=== PATIENT | male | born 1940 | race Caucasian/White ===

== ENCOUNTER → 2016-06-03 | Outpatient (CLI) | payer MEDICARE ==
[2016-06-03 08:56] LABS: ALT 35 U/L (21-72); AST 36 U/L (17-59); Alkaline Phosphatase 56 U/L (38-126); Anion Gap 10 mmol/L; Blood Urea Nitrogen 14 mg/dL (9-20); Calcium 9.2 mg/dL (8.4-10.2); Carbon Dioxide 27 mmol/L (22-30); Chloride 105 mmol/L (98-107); Glucose 89 mg/dL (74-99); Non-African American GFR(MDRD) >60 (>60 ml/min/1.73 sqM); Potassium 4.9 mmol/L (3.5-5.1); Sodium 142 mmol/L (137-145); Total Bilirubin 0.6 mg/dL (0.2-1.3); Total Protein 7.5 g/dL (6.3-8.2)
== END | disposition home or self-care (01) ==
LOC: LABWHC1 07:41
PROVIDERS: ATTEND Internal Medicine Endocrinology, Diabetes & Metabolism
DX: E03.9 Hypothyroidism, unspecified (principal); E55.9 Vitamin D deficiency, unspecified; E23.6 Other disorders of pituitary gland; M81.0 Age-related osteoporosis without current pathological fracture
CPT/HCPCS: 36415; 80053; 82306; 82523; 83970

== ENCOUNTER → 2016-11-04 | Outpatient (CLI) | payer MEDICARE | END | disposition home or self-care (01) | LOC: LABWHC1 09:35 | PROVIDERS: ATTEND Ophthalmology | DX: H53.2 Diplopia (principal) | CPT/HCPCS: 36415; 83519 ==

== ENCOUNTER → 2016-11-14 | Outpatient (CLI) | payer MEDICARE ==
[2016-11-14 14:37] LABS: Blood Urea Nitrogen 13 mg/dL (9-20); Non-African American GFR(MDRD) >60 (>60 ml/min/1.73 sqM)
--- NOTE | 2016-11-14 16:42 | MR ---
EXAMINATION TYPE: MR brain wo/w con DATE OF EXAM: 11/14/2016 COMPARISON: NONE HISTORY: Double Vision Right Eye, Headaches TECHNIQUE: Multiplanar, multisequence images of the brain and brainstem is performed without and with IV contras t, utilizing 15 mL intravenous MultiHance . FINDINGS: Diffusion weighted images demonstrate no evidence of a recent infarct or other diffusion ab normality. There is no extra-axial fluid collection. Periventricular confluent and scattered hyperin tensities are present on inversion recovery and T2-weighted sequences. Juxtacortical focus the insula r cortex on the left [id number] mm in size. The ventricular system and cisternal spaces are normal in size and appearance. The brain volume is age appropriate, there is cortical atrophy. Midline structures demonstrate normal morphology. The craniocervical junction appears within normal limits. Post contrast images demonstrate no abnormal enhancement. The dural venous sinuses appear pa tent. The visualized sinuses are significant for mucosal disease within the ethmoid air cells, maxill nehal sinus, and the globes are intact. IMPRESSION: Age-related atrophy and probable chronic small vessel ischemia. White matter signal banks es are nonspecific.
== END | disposition home or self-care (01) ==
LOC: RADMRIMAIN 13:51
PROVIDERS: ATTEND Ophthalmology
DX: G31.9 Degenerative disease of nervous system, unspecified (principal); R90.89 Other abnormal findings on diagnostic imaging of central nervous system; E11.9 Type 2 diabetes mellitus without complications; N28.9 Disorder of kidney and ureter, unspecified
CPT/HCPCS: 82565; 84520; 70553; A9577

== ENCOUNTER → 2017-01-07 | Outpatient (CLI) | payer MEDICARE ==
[2017-01-07 08:08] LABS: Cholesterol 214 mg/dL (<200); HDL Cholesterol 83 mg/dL (40-60)
== END | disposition home or self-care (01) ==
LOC: LABWHC1 07:11
PROVIDERS: ATTEND Ophthalmology
DX: H53.9 Unspecified visual disturbance (principal)
CPT/HCPCS: 36415; 80061; 83519

== ENCOUNTER 2017-04-17 19:18 | Emergency (ER) | payer MEDICARE ==
[2017-04-17 19:35] VITALS: PULSE 78; RESP 18; TEMP 98.5
[2017-04-17 19:37] VITALS: BP 183/85
--- NOTE | 2017-04-17 20:17 | XR ---
EXAMINATION TYPE: XR shoulder complete LT DATE OF EXAM: 04/17/2017 CLINICAL HISTORY: Left shoulder pain after fall TECHNIQUE: Three views of the left shoulder are obtained. COMPARISON: None. FINDINGS: There is diffuse mild osseous demineralization. There is no acute fracture/dislocation wes dent in the left shoulder. The acromioclavicular and glenohumeral joint spaces appear within normal limits. The visualized ribs are intact and unremarkable. IMPRESSION: There is no acute fracture or dislocation in the left shoulder.
--- NOTE | 2017-04-17 20:42 | ED ---
Upper Extremity HPI - General Chief Complaint: Extremity Injury, Upper Stated Complaint: Fell Time Seen by Provider: 04/17/17 19:57 Source: patient Mode of arrival: ambulatory Limitations: no limitations - History of Present Illness Initial Comments: 77-year-old male patient presents to the emergency department today for evaluation after falling down some steps. Patient states that he was coming down the stairs when he fell backwards striking his left shoulder and left lower back on the stairs. Patient states he did strike his head. He denies any loss of consciousness with this. He denies any current headache, neck pain , back pain, dizziness, weakness, numbness, or tingling. He denies any blurred vision or double vision. He is currently complaining only of left shoulder discomfort. He reports no pain at rest or with palpation of the shoulder however states the pain increases when he attempts to move it. He denies any numbness or tingling in the left arm. States that he was seen at [facility] however sent here because he hit his head. He denies any use of anticoagulant medications. Patient denies any chest pain, shortness of breath, abdominal pain , nausea, vomiting, or difficulties with bowel movements or urination. - Related Data Home Medications Medication Instructions Recorded Confirmed Citalopram Hydrobromide 1 tab PO DAILY 04/17/17 04/17/17 [Citalopram HBr] Previous Rx's Medication Instructions Recorded Ibuprofen [Motrin] 600 mg PO Q8HR PRN #30 tab 04/17/17 Allergies Allergy/AdvReac Type Severity Reaction Status Date / Time aspirin AdvReac Unknown Verified 04/17/17 19:35 Review of Systems ROS Statement: Those systems with pertinent positive or pertinent negative responses have been documented in the HPI. ROS Other: All systems not noted in ROS Statement are negative. Past Medical History Past Medical History: No Reported History History of Any Multi-Drug Resistant Organisms: None Reported Past Surgical History: Back Surgery Past Psychological History: Anxiety Smoking Status: Former smoker Past Alcohol Use History: Occasional Past Drug Use History: None Reported General Exam Limitations: no limitations General appearance: alert, in no apparent distress, other (This is a well- developed, well-nourished elderly male patient in no acute distress. Vital signs upon presentation shows a temperature 98.5F, pulse 78, respirations 18, blood pressure 207/88, pulse ox 98% on room air.) Head exam: Present: atraumatic, normocephalic, normal inspection Eye exam: Present: normal appearance, PERRL, EOMI. Absent: scleral icterus, conjunctival injection, nystagmus, periorbital swelling ENT exam: Present: normal exam, normal oropharynx, mucous membranes moist Neck exam: Present: normal inspection, full ROM, other (Nontender, no step-off, no deformity to firm midline palpation of the posterior cervical spine. Full range of motion without pain or limitation.). Absent: tenderness, meningismus, lymphadenopathy Respiratory exam: Present: normal lung sounds bilaterally. Absent: respiratory distress, wheezes, rales, rhonchi, stridor Cardiovascular Exam: Present: regular rate, normal rhythm, normal heart sounds. Absent: systolic murmur, diastolic murmur, rubs, gallop, clicks Extremities exam: Present: normal inspection, normal capillary refill. Absent: full ROM (Patient has approximately 90 of forward flexion of the left shoulder before pain becomes severe. He has 180 of abduction, and approximately 45 of hyperextension.), tenderness, pedal edema, joint swelling, calf tenderness Back exam: Present: normal inspection, other (Nontender, no step-off, no deformity to firm midline palpation of the thoracic and lumbar vertebrae. Full range of motion without pain or limitation.). Absent: tenderness, vertebral tenderness Neurological exam: Present: alert, oriented X3, CN II-XII intact Psychiatric exam: Present: normal affect, normal mood Skin exam: Present: warm, dry, intact, normal color. Absent: rash Course Vital Signs 04/17/17 04/17/17 19:32 19:37 Temperature 98.5 F Pulse Rate 78 Respiratory 18 Rate Blood Pressure 207/88 183/85 O2 Sat by Pulse 98 Oximetry Medical Decision Making - Medical Decision Making 77-year-old male patient presented to the emergency department today for evaluation of left shoulder pain after a fall injury. Physical examination did reveal some decreased range of motion with for flexion of the left upper extremity at the shoulder. Physical examination was otherwise unremarkable. Patient was neurologically intact. X-ray was negative for any acute fracture or dislocation. Did discuss with patient the possibility of ligamentous or muscle injury. He is instructed to follow-up with his orthopedic physician Dr. Castle who is currently treating him for a right shoulder injury. He is instructed take ibuprofen for pain control. He is instructed to apply ice for the first 24 hours. He is instructed to return here immediately for any new, worsening, or concerning symptoms. He verbalizes understanding and agree with this plan. - Radiology Data Radiology results: report reviewed, image reviewed 3 views of the left shoulder are obtained and showed diffuse mild osseous demineralization. There is no acute fracture dislocation evident in the left shoulder. The acromioclavicular and glenohumeral joint spaces appear within normal limits. The visualized ribs are intact and unremarkable. Impression by Dr. Madrid shows no acute fracture dislocation of the left shoulder. Disposition Clinical Impression: Injury of left shoulder, Head injury Disposition: HOME SELF-CARE Condition: Good Instructions: Fall Prevention (ED), Shoulder Pain (ED) Additional Instructions: Apply ice to the painful areas 20 minutes at a time at least 4 times daily. Continue taking ibuprofen for pain control. Take this medication with food. Follow-up with the orthopedic physician for recheck in 1-2 days. Return here immediately for any new, worsening, or concerning symptoms. Prescriptions: Ibuprofen [Motrin] 600 mg PO Q8HR PRN #30 tab PRN Reason: Pain Referrals: Darren Wheat MD [Primary Care Provider] - 1-2 days Duran Castle MD [STAFF PHYSICIAN] - 1-2 days Time of Disposition: 20:42
== END 2017-04-17 20:47 | disposition home or self-care (01) ==
LOC: EC 19:18
DX: S49.92XA Unspecified injury of left shoulder and upper arm, initial encounter (principal); S09.90XA Unspecified injury of head, initial encounter; Z87.891 Personal history of nicotine dependence; Z88.6 Allergy status to analgesic agent; Z79.899 Other long term (current) drug therapy; W10.9XXA Fall (on) (from) unspecified stairs and steps, initial encounter
CPT/HCPCS: 99283

== ENCOUNTER → 2019-06-20 | Outpatient (CLI) | payer MEDICARE | END | disposition home or self-care (01) | LOC: LABWHC1 09:58 | PROVIDERS: ATTEND Otolaryngology | DX: J30.89 Other allergic rhinitis (principal) | CPT/HCPCS: 36415 ==

== ENCOUNTER → 2019-08-19 | Day surgery (SDC) | payer MEDICARE ==
[2019-08-16 12:47] VITALS: BMI 26.6
[~2019-08-19] MED LIST: LACTATED RINGERS 1,000 ML IV ONE; MIDAZOLAM 2 MG/2 ML VIAL ONE; PROPOFOL 10 MG/ML 20 ML VIAL IV ONE
[2019-08-19 08:04] VITALS: TEMP 97.2
--- NOTE | 2019-08-19 08:24 | P.PCN ---
Date of Procedure: 08/19/19 Procedure(s) Performed: BRIEF HISTORY: Patient is a 79-year-old, pleasant, to 8 male scheduled for an upper endoscopy as a part of evaluation of dysphagia and throat irritation for the last several weeks duration. He was diagnosed with oral candidiasis and was treated with fluconazole and 2 different occasions with no help. He was seen by ENT and was started on Protonix 40 mg daily. Because of the persistent dysphagia and abnormal weight loss of almost 25 pounds in the last 6 months duration he scheduled for an upper endoscopy to evaluate further.. PROCEDURE PERFORMED: Esophagogastroduodenoscopy with biopsy. PREOPERATIVE DIAGNOSIS: Throat irritation and dysphagia/weight loss of 25 pounds. IV sedation per anesthesia. PROCEDURE: After informed consent was obtained, the patient was brought into the endoscopy unit. IV sedation was administered by Anesthesia under continuous monitoring. Initially the Olympus GIF-140 video endoscope was inserted into the mouth. Esophagus intubated without any difficulty. It was gradually advanced into the stomach and duodenum and carefully examined. The bulb and the second part of the duodenum appeared normal. The scope at this time was withdrawn to the stomach, adequately insufflated with air, and upon careful examination, mucosa of the antrum had mild gastritis and biopsies were done from this area. The, body, cardia and the fundus appeared normal. The scope was then withdrawn into the esophagus. The GE junction was located at 39 cm from the incisors. The esophagus appeared normal. There were no erosions or ulcerations seen, multiple biopsies were done from the mid and distal esophagus and the patient tolerated the procedure well. IMPRESSION: 1. Normal-appearing esophagus with no evidence of esophagitis, esophageal stricture. 2. Mild antral gastritis. RECOMMENDATIONS: The findings of this examination were discussed with the abigail ent as well as his family. He was advised to follow with the biopsy results. He will continue with Protonix 40 mg daily. He'll be seen in office in 3 weeks..
[2019-08-19 08:29] VITALS: RESP 17
[2019-08-19 08:32] VITALS: BP 124/65; PULSE 63
== END ==
LOC: ORWHC2ENDO 07:22
PROVIDERS: ATTEND Internal Medicine Gastroenterology
DX: K29.50 Unspecified chronic gastritis without bleeding (principal); K20.9 Esophagitis, unspecified; F32.9 Major depressive disorder, single episode, unspecified; F41.9 Anxiety disorder, unspecified; M81.0 Age-related osteoporosis without current pathological fracture; B37.0 Candidal stomatitis; Z88.6 Allergy status to analgesic agent; Z79.1 Long term (current) use of non-steroidal anti-inflammatories (NSAID); Z79.899 Other long term (current) drug therapy
CPT/HCPCS: 88305; 43239; J2250; J2704

== ENCOUNTER → 2019-11-03 | Outpatient (CLI) | payer MEDICARE ==
--- NOTE | 2019-11-03 09:43 | FL ---
EXAMINATION TYPE: FL barium swallow DATE OF EXAM: 11/03/2019 CLINICAL INDICATION: 79-year-old male with sternal discomfort, R07.9, dysphagia for 9 months. Patient also reports an unintentional 30 pound weight loss. COMPARISON: None Total Fluoroscopy Time: 1 minute 30 seconds Total images: 35 FINDINGS: The swallowing mechanism is normal and hypopharyngeal anatomy is preserved. The cervical and thoracic portions have a normal course and caliber and normal motility. The mucosa is normal and no persistent filling defect is encountered. On prone/supine imaging, a small sliding hiatal hernia becomes evident. Valsalva maneuver shows backf illing into the small hiatal hernia but no elizabeth gastroesophageal reflux could be elicited during the exam. IMPRESSION: Small sliding hiatal hernia. Valsalva results in backfilling into the hernia. However, no elizabeth gastr oesophageal reflux could be elicited during the exam. Additional clinical workup as indicated given t he patient's reported 30 pound unintentional weight loss.
== END | disposition home or self-care (01) ==
LOC: RADFLMAIN 07:49
PROVIDERS: ATTEND Family Medicine
DX: K44.9 Diaphragmatic hernia without obstruction or gangrene (principal); R07.9 Chest pain, unspecified; R63.4 Abnormal weight loss
CPT/HCPCS: 74220